=== PATIENT | female | born 1990 | race Caucasian/White ===

== ENCOUNTER 2019-02-08 08:29 | Inpatient (IN) ==
[2019-02-08] MEDS ORDERED: ONDANSETRON 4 MG/2 ML VIAL IV PRN (08:45)
[2019-02-08] MEDS ORDERED: ceFAZolin 2,000 MG in PREMIX 1 EACH IV ONE (09:05)
[2019-02-08] MEDS ORDERED: FAMOTIDINE 20 MG/2 ML VIAL IV ONE (09:05)
[2019-02-08] MEDS ORDERED: CITRIC ACID/SODIUM CITRATE 30 ML UDCUP PO ONE (09:05)
[2019-02-08 09:07] LABS: Basophils % 0.3 % (0.0-0.8); Eosinophils # 0.1 10*3/uL (0.0-0.87); Eosinophils % 0.6 % (0.00-10.9); Hematocrit 30.7 VOL% (35.7-47.0); Hemoglobin 9.4 GM/DL (12.0-16.0); Immature Granulocytes % 2.1 %; Immature Granulocytes Absolute 0.24 #; Lymphocytes % 17.5 % (21.3-54.2); Mean Corpuscular HGB Conc 30.6 GM/DL (32-36); Mean Corpuscular Volume 87.5 FL (87-102); Mean Platelet Volume 12.1 FL (9.6-12.0); Monocytes % 6.2 % (1.7-12.7); Neutrophils % 73.3 % (38.7-73.9); Platelet Count 205 T/CUMM (130-400); Red Blood Count 3.51 MC/CUMM (3.8-5.5); Red Cell Distribution Width 13.2 % (9.3-17.3); White Blood Count 11.5 T/CUMM (4-12)
[2019-02-08] MEDS ORDERED: OXYTOCIN 10 UNIT/ML VIAL IM ONE (09:07)
[2019-02-08] MEDS ORDERED: OXYTOCIN/LR 30 UNIT/1,000 ML BAG IV ONE (09:08)
[2019-02-08] MEDS ORDERED: OXYTOCIN 10 UNIT/ML VIAL ONE (09:28)
[2019-02-08] MEDS ORDERED: CITRIC ACID/SODIUM CITRATE 30 ML UDCUP ONE (09:29)
[2019-02-08] MEDS ORDERED: LACTATED RINGERS 1,000 ML IV SCH (09:30)
[2019-02-08] MEDS ORDERED: PHENYLEPHRINE 1 MG/10 ML SYRINGE IV ONE (10:09)
[2019-02-08] MEDS ORDERED: ONDANSETRON 4 MG/2 ML VIAL ONE (10:09)
[2019-02-08] MEDS ORDERED: BUPIVACAINE SPINAL 0.75% 2 ML AMP SPINAL ONE (10:09)
[2019-02-08] MEDS ORDERED: MORPHINE 10 MG/10 ML VIAL ONE (10:10)
[2019-02-08] MEDS ORDERED: fentaNYL 100 MCG/2 ML VIAL ONE (10:10)
[2019-02-08 11:15] LABS: Cord Arterial Blood HCO3 23.6 MMOL/L
[2019-02-08 11:19] LABS: Apearance,Urine CLEAR (Clear); Bilirubin,Urine Negative (Negative); Blood, Urine Negative (Negative); Glucose,Urine (UA) Negative (Negative); Ketones,Urine Negative (Negative); Nitrite,Urine Negative (Negative); Protein,Urine Negative; Urine Color Straw (Yellow); Urine Specific Gravity 1.006 (1.001-1.035); Urine Urobilinogen < 2.0 EU/DL (0.2-1.0)
[2019-02-08 11:19] LABS: Cord Venous Blood PCO2 40.8 MMHG; Cord Venous Blood PO2 26.3
[2019-02-08] MEDS ORDERED: SIMETHICONE CHEW 80 MG TABLET PO PRN (13:06)
[2019-02-08] MEDS ORDERED: ACETAMINOPHEN 325 MG TABLET PO PRN (13:06)
[2019-02-08] MEDS ORDERED: MAGNESIUM HYDROXIDE SUSP 30 ML UDCUP PO PRN (13:06)
[2019-02-08] MEDS ORDERED: OXYTOCIN/LR 20 UNIT/1,000 ML BAG IV ONE (13:06)
[2019-02-08] MEDS ORDERED: RHO(D) IMMUNE GLOBULIN 300 MCG SYRINGE IM ONE (13:06)
[2019-02-08] MEDS ORDERED: diphenhydrAMINE 50 MG/1 ML VIAL IV PRN (14:18)
[2019-02-08 18:30] LABS: Basophils % 0.3 % (0.0-0.8); Eosinophils % 0.3 % (0.00-10.9); Hemoglobin 8.1 GM/DL (12.0-16.0); Red Cell Distribution Width 13.2 % (9.3-17.3)
[2019-02-08 18:36] LABS: Eosinophils # 0.1 10*3/uL (0.0-0.87); Hematocrit 25.8 VOL% (35.7-47.0); Immature Granulocytes Absolute 0.16 #; Lymphocytes # 2.2 10*3/uL (1.4-4.0); Lymphocytes % 14.1 % (21.3-54.2); Mean Corpuscular HGB Conc 31.4 GM/DL (32-36); Mean Corpuscular Volume 86.3 FL (87-102); Mean Platelet Volume 11.8 FL (9.6-12.0); Monocytes % 5.5 % (1.7-12.7); Neutrophils % 78.8 % (38.7-73.9); Platelet Count 173 T/CUMM (130-400); Red Blood Count 2.99 MC/CUMM (3.8-5.5)
[2019-02-08 18:37] LABS: White Blood Count 15.9 T/CUMM (4-12)
[2019-02-08] MEDS: IBUPROFEN 800 MG TABLET PO PRN (20:54)
[2019-02-08] MEDS: DOCUSATE SODIUM 100 MG CAPSULE PO SCH (22:02)
[2019-02-09 05:53] LABS: Basophils % 0.2 % (0.0-0.8); Eosinophils # 0.1 10*3/uL (0.0-0.87); Eosinophils % 0.9 % (0.00-10.9); Hematocrit 23.8 VOL% (35.7-47.0); Hemoglobin 7.3 GM/DL (12.0-16.0); Immature Granulocytes % 0.9 %; Immature Granulocytes Absolute 0.11 #; Lymphocytes # 2.2 10*3/uL (1.4-4.0); Lymphocytes % 17.4 % (21.3-54.2); Mean Corpuscular HGB Conc 30.7 GM/DL (32-36); Mean Corpuscular Volume 87.2 FL (87-102); Mean Platelet Volume 11.9 FL (9.6-12.0); Monocytes % 6.1 % (1.7-12.7); Neutrophils % 74.5 % (38.7-73.9); Platelet Count 157 T/CUMM (130-400); Red Blood Count 2.73 MC/CUMM (3.8-5.5); Red Cell Distribution Width 13.5 % (9.3-17.3); White Blood Count 12.5 T/CUMM (4-12)
[2019-02-09] MEDS: DOCUSATE SODIUM 100 MG CAPSULE PO SCH ×2 (08:44→20:56)
[2019-02-09] MEDS: FERROUS SULFATE 325 MG TABLET PO SCH ×3 (08:44→20:56)
[2019-02-09] MEDS: MULTIVITAMIN (PRENATAL) TABLET PO SCH (08:44)
[2019-02-09] MEDS: IBUPROFEN 800 MG TABLET PO PRN ×2 (08:45→16:40)
[2019-02-09] MEDS ORDERED: RHO(D) IMMUNE GLOBULIN 300 MCG SYRINGE IM ONE (20:30)
[2019-02-10] MEDS: IBUPROFEN 800 MG TABLET PO PRN (03:08)
[2019-02-10 08:17] VITALS: BP 99/54
[2019-02-10] MEDS: MULTIVITAMIN (PRENATAL) TABLET PO SCH (09:47)
[2019-02-10] MEDS: DOCUSATE SODIUM 100 MG CAPSULE PO SCH (09:47)
[2019-02-10] MEDS: FERROUS SULFATE 325 MG TABLET PO SCH (09:47)
[2019-02-10] MEDS ORDERED: MAGNESIUM CITRATE 300 ML BOTTLE PO ONE (10:36)
[2019-02-10] MEDS ORDERED: METOCLOPRAMIDE 10 MG TABLET PO SCH (11:00)
== END 2019-02-10 14:00 | disposition home or self-care (01) | DRG 540 ==
LOC: N.LDOUT 08:29 → N.LD 08:30 → N.OB 14:35
PROVIDERS: ADMIT Obstetrics & Gynecology; ATTEND Obstetrics & Gynecology
PROC: LDCSECT (ICD-10-PCS; 2019-02-08 10:00)